=== PATIENT | female | born 1945 | race Two or more races ===

== ENCOUNTER 2018-01-05 17:25 | Emergency (ER) | payer OTHER ==
[~2018-01-05] VITALS: Ht 157.5 cm; Wt 56.2 kg
[2018-01-05 18:00] VITALS: BP 128/64
[2018-01-05 18:49] LABS: Urine Bacteria NONE SEEN /hpf (None Seen); Urine Blood Negative /uL (Negative); Urine Specific Gravity 1.004 (1.001-1.035); Urine WBC <1 /hpf (0 - 5)
[2018-01-05 18:50] LABS: Basophils # (auto) 0 uL; Basophils % (auto) 0.5 % (0.0-2.0); Eosinophils # (auto) 0.4 uL; Eosinophils % (auto) 6.1 % (0.0-7.0); Hematocrit 36.3 % (36.0-46.0); Hemoglobin 12.1 g/dL (12.2-16.2); Lymphocytes # (auto) 1.3 uL; Lymphocytes % (auto) 22.3 % (10.0-50.0); Mean Corpuscular Hemoglobin 29.6 pg (28.0-32.0); Mean Corpuscular Hgb Conc. 33.4 g/dL (32.0-36.0); Mean Corpuscular Volume 88.6 fL (80.0-100.0); Monocytes # (auto) 0.5 uL; Monocytes % (auto) 8.7 % (0.0-12.0); Neutrophils # (auto) 3.7 uL; Neutrophils % (auto) 62.4 % (37.0-80.0); Nucleated Red Blood Cells % 0.1 %; Platelet Count (auto) 277 10^3/uL (140-450); Red Cell Distribution Width 15.1 % (11.8-14.3)
[2018-01-05 19:07] LABS: Albumin 3.3 g/dL (3.4-5.0); Anion Gap 5 (5-15); Blood Urea Nitrogen 13 mg/dL (7-18); Calcium 8.1 mg/dL (8.5-10.1); Carbon Dioxide 29 mmol/L (21-32); Chloride 105 mmol/L (98-107); Glucose 92 mg/dL (74-106); Potassium 4.4 mmol/L (3.5-5.1); Sodium 139 mmol/L (136-145)
[2018-01-05 19:09] LABS: Alanine Aminotransferase 30 U/L (13-56); Aspartate Aminotransferase 21 U/L (15-37); BUN/Creatinine Ratio 17.3; GFR African American 97 mL/min; GFR Non-African American 80 mL/min
[2018-01-05 19:13] LABS: Alkaline Phosphatase 80 U/L (45-117); Bilirubin, Total 0.3 mg/dL (0.2-1.0); Total Protein 6.6 g/dL (6.4-8.2)
== END 2018-01-05 23:29 | disposition left against medical advice (07) ==
LOC: ER 17:25
DX: R06.02 Shortness of breath (principal); R53.1 Weakness; Z53.21 Procedure and treatment not carried out due to patient leaving prior to being seen by health care provider
CPT/HCPCS: 36415; 71045; 80053; 81001; 84484; 85025; 93005

== ENCOUNTER 2020-08-19 08:01 | Inpatient (IN) | payer OTHER ==
[~2020-08-19] VITALS: Ht 157.5 cm; Wt 57.2 kg
[2020-08-19 09:05] LABS: Basophils # (auto) 0.1 10 ^3/uL (0-0.2); Basophils % (auto) 0.8 % (0.0-2.0); Eosinophils # (auto) 0.3 10 ^3/uL (0-0.8); Eosinophils % (auto) 2.5 % (0.0-7.0); Hematocrit 35.2 % (36.0-46.0); Hemoglobin 11.8 g/dL (12.2-16.2); Lymphocytes # (auto) 1.2 10 ^3/uL (0.4-5.4); Lymphocytes % (auto) 11.7 % (10.0-50.0); Mean Corpuscular Hemoglobin 29.3 pg (28.0-32.0); Mean Corpuscular Hgb Conc. 33.4 g/dL (32.0-36.0); Mean Corpuscular Volume 87.5 fL (80.0-100.0); Monocytes # (auto) 0.3 10 ^3/uL (0-1.3); Monocytes % (auto) 3.4 % (0.0-12.0); Neutrophils # (auto) 8.4 10 ^3/uL (1.6-8.6); Neutrophils % (auto) 81.6 % (37.0-80.0); Nucleated Red Blood Cells % 0.1 %; Platelet Count (auto) 272 10^3/uL (140-450); Red Blood Cells 4.02 10^6/uL (4.0-5.20); Red Cell Distribution Width 16.1 % (11.8-14.3); White Blood Cell 10.3 10^3/uL (4.4-10.8)
[2020-08-19 09:15] LABS: Albumin 2.6 g/dL (3.4-5.0); Magnesium 1.8 mg/dL (1.6-2.6); Potassium 4.2 mmol/L (3.5-5.1)
[2020-08-19 09:16] LABS: Lactic Acid w/Reflex 2.2 mmol/L (0.4-2.0)
[2020-08-19 09:20] LABS: BUN/Creatinine Ratio 24.3; Bilirubin, Total 0.4 mg/dL (0.2-1.0); Total Protein 6.6 g/dL (6.4-8.2)
[2020-08-19] MEDS ORDERED: FUROSEMIDE 20 MG/2 ML VIAL IV ONE (12:15)
[2020-08-19 14:09] LABS: Urine Amorphous Crystal MANY /hpf (None Seen); Urine Bacteria NONE SEEN /hpf (None Seen); Urine Blood Negative /uL (Negative); Urine Mucus FEW (None Seen); Urine Specific Gravity 1.015 (1.001-1.035); Urine WBC 5 /hpf (0 - 5)
[2020-08-19] MEDS ORDERED: cefTRIAXone 1GM/50ML D5W 50 ML IV ONE (19:15)
[2020-08-19] MEDS ORDERED: traMADol HCL 50 MG TAB PO PRN (19:15)
[2020-08-19] MEDS ORDERED: NITROGLYCERIN 0.4 MG SL TAB SL PRN (19:15)
[2020-08-19] MEDS ORDERED: LACTULOSE 20Gm/30ML SOLN PO PRN (19:15)
[2020-08-19] MEDS ORDERED: ONDANSETRON HCL 4 MG/2 ML VIAL IV PRN (19:15)
[2020-08-19] MEDS ORDERED: MORPHINE SULF INJ 2 MG/ML SYRINGE 1ML IV PRN (19:15)
[2020-08-19 21:10] VITALS: BP 135/81
[2020-08-19 22:00] VITALS: BP 135/81
[2020-08-19] MEDS: SODIUM CHLOR 0.9% PF (SALINE LOCK) 10ML VIAL/SYR IV SCH (22:00)
[2020-08-19] MEDS: ATORVASTATIN 20 MG TAB PO SCH (23:45)
[2020-08-19] MEDS: CARVEDILOL 3.125 MG TAB PO SCH (23:46)
[2020-08-20 01:32] VITALS: BP 135/81
[2020-08-20 05:00] VITALS: BP 97/62
[2020-08-20] MEDS: SODIUM CHLOR 0.9% PF (SALINE LOCK) 10ML VIAL/SYR IV SCH ×3 (06:00→22:50)
[2020-08-20 06:40] LABS: Basophils # (auto) 0.1 10 ^3/uL (0-0.2); Basophils % (auto) 0.7 % (0.0-2.0); Eosinophils # (auto) 0.3 10 ^3/uL (0-0.8); Eosinophils % (auto) 2.6 % (0.0-7.0); Hematocrit 34.4 % (36.0-46.0); Hemoglobin 11.8 g/dL (12.2-16.2); Lymphocytes % (auto) 8.7 % (10.0-50.0); Mean Corpuscular Hemoglobin 29.8 pg (28.0-32.0); Mean Corpuscular Hgb Conc. 34.2 g/dL (32.0-36.0); Mean Corpuscular Volume 86.9 fL (80.0-100.0); Monocytes # (auto) 0.3 10 ^3/uL (0-1.3); Monocytes % (auto) 2.8 % (0.0-12.0); Neutrophils # (auto) 9.5 10 ^3/uL (1.6-8.6); Neutrophils % (auto) 85.2 % (37.0-80.0); Nucleated Red Blood Cells % 0.2 %; Platelet Count (auto) 284 10^3/uL (140-450); Red Blood Cells 3.96 10^6/uL (4.0-5.20); Red Cell Distribution Width 15.5 % (11.8-14.3); White Blood Cell 11.2 10^3/uL (4.4-10.8)
[2020-08-20 06:53] LABS: Albumin 2.4 g/dL (3.4-5.0); BUN/Creatinine Ratio 24.3; Bilirubin, Total 0.7 mg/dL (0.2-1.0); Total Protein 6.5 g/dL (6.4-8.2)
[2020-08-20 08:53] VITALS: BP 94/48
[2020-08-20] MEDS: ALBUTEROL SULF 2.5 MG/0.5ML(0.5%) NEB SOLN NEB PRN (08:59)
[2020-08-20] MEDS: ASPirin 81 mg TAB PO SCH (09:32)
[2020-08-20] MEDS: ENOXAPARIN SOD 40 MG/0.4 ML SYRINGE SC SCH (09:32)
[2020-08-20] MEDS: CARVEDILOL 3.125 MG TAB PO SCH (09:36)
[2020-08-20] MEDS: NITROGLYCERIN 0.2MG/HR TOPICAL PATCH TD SCH (09:37)
[2020-08-20] MEDS ORDERED: ENALAPRIL MALEATE 2.5 MG TAB PO SCH (10:00)
[2020-08-20] MEDS: FUROSEMIDE 40 MG/4 ML VIAL IV SCH (10:44)
[2020-08-20] MEDS: POTASSIUM CHL 20 Meq TABLET PO SCH (10:45)
[2020-08-20 12:38] VITALS: BP 95/51
[2020-08-20] MEDS ORDERED: AZITHROMYCIN 500MG/ 250ML 250 ML IV ONE (15:15)
[2020-08-20 16:41] VITALS: BP 97/47
[2020-08-20] MEDS ORDERED: METO-169 PO (17:54)
[2020-08-20] MEDS ORDERED: LEVO25TA6 PO (17:54)
[2020-08-20 22:00] VITALS: BP 100/52
[2020-08-20] MEDS: guaiFENesin 200 MG/10 ML UD PO PRN (22:48)
[2020-08-20] MEDS: ATORVASTATIN 20 MG TAB PO SCH (22:49)
[2020-08-20] MEDS: cefTRIAXone 1GM/50ML D5W 50 ML IV SCH (22:50)
[2020-08-21] MEDS: guaiFENesin 200 MG/10 ML UD PO PRN (02:33)
[2020-08-21 05:00] VITALS: BP 103/56
[2020-08-21] MEDS: SODIUM CHLOR 0.9% PF (SALINE LOCK) 10ML VIAL/SYR IV SCH ×3 (05:26→22:21)
[2020-08-21 06:53] LABS: Basophils # (auto) 0 10 ^3/uL (0-0.2); Basophils % (auto) 0.3 % (0.0-2.0); Eosinophils # (auto) 0.3 10 ^3/uL (0-0.8); Eosinophils % (auto) 2.5 % (0.0-7.0); Hematocrit 32.9 % (36.0-46.0); Hemoglobin 11.4 g/dL (12.2-16.2); Lymphocytes # (auto) 0.8 10 ^3/uL (0.4-5.4); Lymphocytes % (auto) 8.3 % (10.0-50.0); Mean Corpuscular Hemoglobin 29.9 pg (28.0-32.0); Mean Corpuscular Hgb Conc. 34.5 g/dL (32.0-36.0); Mean Corpuscular Volume 86.5 fL (80.0-100.0); Monocytes # (auto) 0.3 10 ^3/uL (0-1.3); Monocytes % (auto) 2.7 % (0.0-12.0); Neutrophils # (auto) 8.8 10 ^3/uL (1.6-8.6); Neutrophils % (auto) 86.2 % (37.0-80.0); Platelet Count (auto) 278 10^3/uL (140-450); Red Blood Cells 3.81 10^6/uL (4.0-5.20); White Blood Cell 10.2 10^3/uL (4.4-10.8)
[2020-08-21 07:18] LABS: Chloride 98 mmol/L (98-107); Potassium 4.1 mmol/L (3.5-5.1); Sodium 134 mmol/L (136-145)
[2020-08-21 07:35] LABS: Anion Gap 7 (5-15); BUN/Creatinine Ratio 35.5; Blood Urea Nitrogen 22 mg/dL (7-18); Calcium 8.9 mg/dL (8.5-10.1); Carbon Dioxide 29 mmol/L (21-32); Cholesterol 189 mg/dL (< 200); GFR African American 120 mL/min; GFR Non-African American 99 mL/min; Glucose 122 mg/dL (74-106); HDL Cholesterol 43 mg/dL (40-59); LDL Cholesterol 119 mg/dL (< 100); Magnesium 2.4 mg/dL (1.6-2.6); Triglycerides 119 mg/dL (< 150)
[2020-08-21 09:00] VITALS: BP 110/53
[2020-08-21] MEDS: POTASSIUM CHL 20 Meq TABLET PO SCH (09:26)
[2020-08-21] MEDS: ASPirin 81 mg TAB PO SCH (09:27)
[2020-08-21] MEDS: FUROSEMIDE 40 MG/4 ML VIAL IV SCH (09:28)
[2020-08-21] MEDS: ENOXAPARIN SOD 40 MG/0.4 ML SYRINGE SC SCH (09:30)
[2020-08-21] MEDS: NITROGLYCERIN 0.2MG/HR TOPICAL PATCH TD SCH (09:31)
[2020-08-21] MEDS: AZITHROMYCIN 500MG/ 250ML 250 ML IV SCH (09:32)
[2020-08-21 13:00] VITALS: BP 106/69
[2020-08-21] MEDS ORDERED: THROAT LOZENGES(CEPASTAT) MT PRN (13:15)
[2020-08-21] MEDS: ALPRAZolam 0.25 MG TAB PO PRN (13:40)
[2020-08-21 17:00] VITALS: BP 91/56
[2020-08-21 22:00] VITALS: BP 99/54
[2020-08-21] MEDS: cefTRIAXone 1GM/50ML D5W 50 ML IV SCH (22:21)
[2020-08-21] MEDS: ATORVASTATIN 20 MG TAB PO SCH (22:22)
[2020-08-22] MEDS: guaiFENesin 200 MG/10 ML UD PO PRN ×2 (01:31→22:28)
[2020-08-22 05:00] VITALS: BP 113/60
[2020-08-22] MEDS: SODIUM CHLOR 0.9% PF (SALINE LOCK) 10ML VIAL/SYR IV SCH ×3 (05:35→22:57)
[2020-08-22 08:00] VITALS: BP 108/68
[2020-08-22 08:07] LABS: BUN/Creatinine Ratio 59.6; Calcium 9.3 mg/dL (8.5-10.1); Potassium 4.3 mmol/L (3.5-5.1)
[2020-08-22] MEDS: POTASSIUM CHL 20 Meq TABLET PO SCH (09:35)
[2020-08-22] MEDS: AZITHROMYCIN 500MG/ 250ML 250 ML IV SCH (09:35)
[2020-08-22] MEDS: ASPirin 81 mg TAB PO SCH (09:35)
[2020-08-22] MEDS: ENOXAPARIN SOD 40 MG/0.4 ML SYRINGE SC SCH (09:36)
[2020-08-22] MEDS: FUROSEMIDE 40 MG/4 ML VIAL IV SCH (09:36)
[2020-08-22] MEDS: ACETAMINOPHEN 500 MG TAB PO PRN ×2 (11:42→22:35)
[2020-08-22 12:00] VITALS: BP 108/68
[2020-08-22 16:00] VITALS: BP 123/68
[2020-08-22 20:56] VITALS: BP 123/68
[2020-08-22 22:00] VITALS: BP 100/63
[2020-08-22] MEDS: cefTRIAXone 1GM/50ML D5W 50 ML IV SCH (22:27)
[2020-08-22] MEDS: ALPRAZolam 0.25 MG TAB PO PRN (22:36)
[2020-08-22] MEDS: ATORVASTATIN 20 MG TAB PO SCH (22:57)
[2020-08-23 05:00] VITALS: BP 94/56
[2020-08-23] MEDS: SODIUM CHLOR 0.9% PF (SALINE LOCK) 10ML VIAL/SYR IV SCH ×3 (05:59→22:45)
[2020-08-23] MEDS: ALBUTEROL SULF 2.5 MG/0.5ML(0.5%) NEB SOLN NEB PRN (06:00)
[2020-08-23 08:00] VITALS: BP 118/61
[2020-08-23] MEDS: POTASSIUM CHL 20 Meq TABLET PO SCH (09:10)
[2020-08-23] MEDS: ENOXAPARIN SOD 40 MG/0.4 ML SYRINGE SC SCH (09:10)
[2020-08-23] MEDS: ASPirin 81 mg TAB PO SCH (09:10)
[2020-08-23] MEDS: AZITHROMYCIN 500MG/ 250ML 250 ML IV SCH (09:10)
[2020-08-23 11:59] VITALS: BP 117/94
[2020-08-23 16:00] VITALS: BP 103/52
[2020-08-23] MEDS: ATORVASTATIN 20 MG TAB PO SCH (21:27)
[2020-08-23 22:00] VITALS: BP 125/69
[2020-08-23] MEDS: cefTRIAXone 1GM/50ML D5W 50 ML IV SCH (22:45)
[2020-08-24 04:44] VITALS: BP 123/71
[2020-08-24] MEDS: SODIUM CHLOR 0.9% PF (SALINE LOCK) 10ML VIAL/SYR IV SCH ×3 (05:44→22:00)
[2020-08-24 09:00] VITALS: BP_SYST 125; BP_SYST 132; BP_DIAS 60; BP_DIAS 69
[2020-08-24] MEDS: POTASSIUM CHL 20 Meq TABLET PO SCH (09:32)
[2020-08-24] MEDS: AZITHROMYCIN 500MG/ 250ML 250 ML IV SCH (09:33)
[2020-08-24] MEDS: ENOXAPARIN SOD 40 MG/0.4 ML SYRINGE SC SCH (09:33)
[2020-08-24] MEDS: ASPirin 81 mg TAB PO SCH (09:33)
[2020-08-24 13:01] VITALS: BP 111/71
[2020-08-24 17:00] VITALS: BP 107/63
[2020-08-24] MEDS: cefTRIAXone 1GM/50ML D5W 50 ML IV SCH (22:00)
[2020-08-24] MEDS: ATORVASTATIN 20 MG TAB PO SCH (22:00)
[2020-08-24 22:12] VITALS: BP 102/53
[2020-08-25 05:04] VITALS: BP 112/73
[2020-08-25] MEDS: SODIUM CHLOR 0.9% PF (SALINE LOCK) 10ML VIAL/SYR IV SCH ×3 (05:57→23:09)
[2020-08-25 09:00] VITALS: BP 117/62
[2020-08-25] MEDS: AZITHROMYCIN 500MG/ 250ML 250 ML IV SCH (10:37)
[2020-08-25] MEDS: ASPirin 81 mg TAB PO SCH (10:37)
[2020-08-25] MEDS: ENOXAPARIN SOD 40 MG/0.4 ML SYRINGE SC SCH (10:38)
[2020-08-25] MEDS: POTASSIUM CHL 20 Meq TABLET PO SCH (10:38)
[2020-08-25 13:00] VITALS: BP 105/73
[2020-08-25] MEDS: guaiFENesin 200 MG/10 ML UD PO PRN (15:14)
[2020-08-25 17:00] VITALS: BP 115/61
[2020-08-25 20:36] VITALS: BP 115/61
[2020-08-25 22:00] VITALS: BP 119/68
[2020-08-25] MEDS: cefTRIAXone 1GM/50ML D5W 50 ML IV SCH (23:09)
[2020-08-25] MEDS: ATORVASTATIN 20 MG TAB PO SCH (23:10)
[2020-08-26 05:00] VITALS: BP 120/64
[2020-08-26] MEDS: SODIUM CHLOR 0.9% PF (SALINE LOCK) 10ML VIAL/SYR IV SCH ×3 (05:43→22:41)
[2020-08-26 06:07] LABS: Mean Corpuscular Hemoglobin 29.9 pg (28.0-32.0); Mean Corpuscular Hgb Conc. 34.5 g/dL (32.0-36.0); Mean Corpuscular Volume 86.8 fL (80.0-100.0); Platelet Count (auto) 409 10^3/uL (140-450); Red Blood Cells 3.34 10^6/uL (4.0-5.20); White Blood Cell 9.6 10^3/uL (4.4-10.8)
[2020-08-26 06:25] LABS: Basophils % (manual) 0 (0.0-2.0); Blast Cells 0; Promyelocytes % 0; Reactive Lymphocytes 0
[2020-08-26 06:26] LABS: Potassium 4.3 mmol/L (3.5-5.1)
[2020-08-26 06:33] LABS: BUN/Creatinine Ratio 30.2; Calcium 9.2 mg/dL (8.5-10.1)
[2020-08-26 07:06] LABS: Band Neutrophils % (manual) 2; Eosinophils % (manual) 2 (0-7); Lymphocytes % (manual) 17 (10.0-50.0); Metamyelocytes % 1; Monocytes % (manual) 1 (0-12); Myelocytes % 3
[2020-08-26 09:00] VITALS: BP 104/50
[2020-08-26] MEDS: AZITHROMYCIN 500MG/ 250ML 250 ML IV SCH (10:54)
[2020-08-26] MEDS: ASPirin 81 mg TAB PO SCH (10:55)
[2020-08-26] MEDS: ENOXAPARIN SOD 40 MG/0.4 ML SYRINGE SC SCH (10:55)
[2020-08-26] MEDS: POTASSIUM CHL 20 Meq TABLET PO SCH (10:56)
[2020-08-26 13:00] VITALS: BP 114/62
[2020-08-26 17:00] VITALS: BP 103/54
[2020-08-26 22:00] VITALS: BP 122/64
[2020-08-26] MEDS: ATORVASTATIN 20 MG TAB PO SCH (22:41)
[2020-08-26] MEDS: cefTRIAXone 1GM/50ML D5W 50 ML IV SCH (22:41)
[2020-08-26] MEDS: ALPRAZolam 0.25 MG TAB PO PRN (22:43)
[2020-08-27 05:00] VITALS: BP 115/61
[2020-08-27] MEDS: SODIUM CHLOR 0.9% PF (SALINE LOCK) 10ML VIAL/SYR IV SCH ×3 (05:34→21:28)
[2020-08-27 09:00] VITALS: BP 114/60
[2020-08-27] MEDS: ASPirin 81 mg TAB PO SCH (11:24)
[2020-08-27] MEDS: AZITHROMYCIN 500MG/ 250ML 250 ML IV SCH (11:24)
[2020-08-27] MEDS: ENOXAPARIN SOD 40 MG/0.4 ML SYRINGE SC SCH (11:25)
[2020-08-27] MEDS: POTASSIUM CHL 20 Meq TABLET PO SCH (11:25)
[2020-08-27 13:00] VITALS: BP 128/69
[2020-08-27 17:00] VITALS: BP 122/70
[2020-08-27] MEDS: cefTRIAXone 1GM/50ML D5W 50 ML IV SCH (21:28)
[2020-08-27] MEDS: ATORVASTATIN 20 MG TAB PO SCH (21:29)
[2020-08-27 21:33] VITALS: BP 104/58
[2020-08-28] MEDS: SODIUM CHLOR 0.9% PF (SALINE LOCK) 10ML VIAL/SYR IV SCH ×2 (04:18→15:06)
[2020-08-28 05:00] VITALS: BP 110/59
[2020-08-28 09:00] VITALS: BP 118/70
[2020-08-28] MEDS: ASPirin 81 mg TAB PO SCH (10:57)
[2020-08-28] MEDS: AZITHROMYCIN 500MG/ 250ML 250 ML IV SCH (10:57)
[2020-08-28] MEDS: ENOXAPARIN SOD 40 MG/0.4 ML SYRINGE SC SCH (10:58)
[2020-08-28] MEDS: POTASSIUM CHL 20 Meq TABLET PO SCH (10:58)
[2020-08-28 13:00] VITALS: BP 116/66
[2020-08-28 17:00] VITALS: BP 124/73
== END 2020-08-28 18:15 | disposition home or self-care (01) | DRG 193 ==
LOC: EDBD 08:01 → ER 08:01 → TELE 19:04 → TELE-CENTR 20:42
PROVIDERS: ADMIT Internal Medicine; ATTEND Internal Medicine Geriatric Medicine
DX: J18.9 Pneumonia, unspecified organism (principal); J96.01 Acute respiratory failure with hypoxia; N30.00 Acute cystitis without hematuria; E44.0 Moderate protein-calorie malnutrition; J44.0 Chronic obstructive pulmonary disease with (acute) lower respiratory infection; E03.9 Hypothyroidism, unspecified; I10 Essential (primary) hypertension; D63.8 Anemia in other chronic diseases classified elsewhere; I73.9 Peripheral vascular disease, unspecified; E78.00 Pure hypercholesterolemia, unspecified; Z20.822 Contact with and (suspected) exposure to COVID-19; E78.5 Hyperlipidemia, unspecified; F41.9 Anxiety disorder, unspecified; Z82.49 Family history of ischemic heart disease and other diseases of the circulatory system; Z88.5 Allergy status to narcotic agent
CPT/HCPCS: 36415; 71045; 71046; 80048; 80053; 80061; 81001; 82550; 83605; 83735; 83880; 84443; 84484; 85007; 85025; 85027; 85379; 87040; 87086; 87426; 87804; 93005; 93306; 93925; 93970; 94640; 96365; 96375; G0378; J0696

== ENCOUNTER 2023-12-06 23:56 | Inpatient (IN) | payer OTHER ==
[~2023-12-06] VITALS: Ht 162.6 cm; Wt 54.2 kg
[~2023-12-06 23:56] MED LIST: LEVO25TA6 PO; METO-289 PO
[2023-12-07] VITALS (73 sets, daily range): BP systolic 94–141; BP diastolic 59–93; PULSE 62–91; RESP 11–40; TEMP 97.6–98.2; O2SAT 93–100
[2023-12-07] MEDS: MIDAZOLAM HCL 2MG/2ML 2ml VIAL (1mg/ml) ONE (00:20)
[2023-12-07] MEDS: fentaNYL CITRATE 100 MCG/2 ML VL ONE (00:20)
[2023-12-07] MEDS: HEPARIN SODIUM (PORCINE) 5000 UNITS/ML 1ML VIAL ONE ×2 (00:20→00:51)
[2023-12-07] MEDS: ANGIOMAX 250 MG VIAL IV ONE (00:20)
[2023-12-07] MEDS: VERAPAMIL 2.5MG/ML INJ 2ML VIAL IV ONE (00:20)
[2023-12-07] MEDS: LIDOCAINE 2%HCL (LOCAL ANESTH.) INJ 20ML MDV ONE (00:21)
[2023-12-07] MEDS: IODIXANOL 320MG/ML 100ML BTL IV ONE ×2 (00:21→01:38)
[2023-12-07] MEDS: SODIUM CHL 0.9% 50 ML ONE (00:21)
[2023-12-07 00:25] LABS: Basophils # (auto) 0 10 ^3/uL (0-0.2); Basophils % (auto) 0.3 % (0.0-2.0); Eosinophils # (auto) 0 10 ^3/uL (0-0.8); Eosinophils % (auto) 0.2 % (0.0-7.0); Hematocrit 48.5 % (36.0-46.0); Hemoglobin 15.4 g/dL (12.2-16.2); Lymphocytes # (auto) 0.4 10 ^3/uL (0.4-5.4); Lymphocytes % (auto) 2.8 % (10.0-50.0); Mean Corpuscular Hemoglobin 30.2 pg (28.0-32.0); Mean Corpuscular Hgb Conc. 31.7 g/dL (32.0-36.0); Mean Corpuscular Volume 95.2 fL (80.0-100.0); Monocytes # (auto) 0.6 10 ^3/uL (0-1.3); Neutrophils # (auto) 13.8 10 ^3/uL (1.6-8.6); Neutrophils % (auto) 92.7 % (37.0-80.0); Nucleated Red Blood Cells % 0.1 %; Red Blood Cells 5.09 10^6/uL (4.0-5.20); Red Cell Distribution Width 16.8 % (11.8-14.3); White Blood Cell 14.9 10^3/uL (4.4-10.8)
[2023-12-07 00:39] LABS: INR 1.13 (0.9-1.15); Partial Thromboplastin Time 23.7 SEC (24.5-34.5); Prothrombin Time 11.9 sec (9.3-11.8)
[2023-12-07] MEDS: NITROGLYCERIN 2% OINT 1GM PKG TD ONE (00:42)
[2023-12-07] MEDS: methylPREDNISolone SOD SUCC 125 MG/2 ML VL IV ONE (00:42)
[2023-12-07 00:43] LABS: Alanine Aminotransferase 530 U/L (7-40); Albumin 3.8 g/dL (3.2-4.8); Alkaline Phosphatase 139 U/L (46-116); Anion Gap 10 (5-15); Aspartate Aminotransferase 918 U/L (13-40); BUN/Creatinine Ratio 20.2 (10.0-20.0); Blood Urea Nitrogen 20 mg/dL (9-23); Carbon Dioxide 20 mmol/L (20-30); Chloride 107 mmol/L (98-107); Glucose 301 mg/dL (74-106); Potassium 4.8 mmol/L (3.5-5.1); Sodium 137 mmol/L (136-145)
[2023-12-07 00:44] LABS: Bilirubin, Total 1.2 mg/dL (0.2-1.0); Total Protein 5.5 g/dL (5.7-8.2)
[2023-12-07] MEDS: IPRATROPIUM BROM 0.5 MG/2.5ML INH SOL NEB ONE (00:50)
[2023-12-07] MEDS: ALBUTEROL SULF 2.5 MG/0.5ML(0.5%) NEB SOLN NEB ONE (00:50)
[2023-12-07] MEDS: CLOPIDOGREL BISULFATE 75 MG TAB ONE (00:51)
[2023-12-07] MEDS: MORPHINE SULFATE INJ 2 MG/ml SYRG ONE (00:51)
[2023-12-07] MEDS: ATROPINE SULF 1 MG/10ml SYR ONE (01:31)
[2023-12-07] MEDS: EPINEPHrine HCL 1 MG/10 ML SYRG ONE (01:31)
[2023-12-07] MEDS ORDERED: MORPHINE SULFATE INJ 2 MG/ml SYRG IV PRN (02:30)
[2023-12-07] MEDS ORDERED: NITROGLYCERIN 0.4 MG SL TAB SL PRN (02:30)
[2023-12-07] MEDS: SODIUM CHLORIDE 0.9% 1,000 ML IV ONE (04:00)
[2023-12-07] MEDS: CLOPIDOGREL BISULFATE 75 MG TAB PO SCH (09:54)
[2023-12-07] MEDS: ASPirin 81 mg TAB PO SCH (09:54)
[2023-12-07] MEDS: METOPROLOL TARTRATE 25 MG TAB PO SCH (09:55)
[2023-12-07 15:16] LABS: Hematocrit 47.3 % (36.0-46.0); Hemoglobin 15.2 g/dL (12.2-16.2); Mean Corpuscular Hemoglobin 29.9 pg (28.0-32.0); Mean Corpuscular Hgb Conc. 32.1 g/dL (32.0-36.0); Mean Corpuscular Volume 93.2 fL (80.0-100.0); Red Blood Cells 5.07 10^6/uL (4.0-5.20); White Blood Cell 10.9 10^3/uL (4.4-10.8)
[2023-12-07 15:26] LABS: Basophils % (manual) 0 (0.0-2.0); Blast Cells 0; Eosinophils % (manual) 0 (0-7); Metamyelocytes % 0; Myelocytes % 0; Promyelocytes % 0; Reactive Lymphocytes 0
[2023-12-07 15:34] LABS: Alanine Aminotransferase 418 U/L (7-40); Albumin 3.6 g/dL (3.2-4.8); Alkaline Phosphatase 109 U/L (46-116); Anion Gap 6 (5-15); Aspartate Aminotransferase 629 U/L (13-40); BUN/Creatinine Ratio 20.2 (10.0-20.0); Bilirubin, Total 0.6 mg/dL (0.2-1.0); Blood Urea Nitrogen 17 mg/dL (9-23); Calcium 8.8 mg/dL (8.7-10.4); Carbon Dioxide 23 mmol/L (20-30); Chloride 108 mmol/L (98-107); Glucose 172 mg/dL (74-106); Potassium 5.1 mmol/L (3.5-5.1); Sodium 137 mmol/L (136-145); Total Protein 5.6 g/dL (5.7-8.2)
[2023-12-07] MEDS ORDERED: MONT-8 PO (16:13)
[2023-12-07] MEDS ORDERED: BENZ100C97 PO (16:16)
[2023-12-07] MEDS ORDERED: LEVO25TA6 PO (16:17)
[2023-12-07] MEDS ORDERED: ALBU108A5 IN (16:21)
[2023-12-07 16:24] LABS: Band Neutrophils % (manual) 2; Lymphocytes % (manual) 5 (10.0-50.0); Monocytes % (manual) 1 (0-12)
[2023-12-07] MEDS ORDERED: [UNRECOGNIZED DRUG - CODE] PO (16:24)
[2023-12-07 16:25] LABS: Anisocytosis Slight; Giant Platelets Few; Macrocytosis Slight; Platelet Estimate Adequate
[2023-12-07] MEDS: SACUBITRIL-VALSARTAN 24mg/26mg TAB PO SCH (21:49)
[2023-12-08] VITALS (8 sets, daily range): BP systolic 105–118; BP diastolic 57–74; PULSE 61–75; RESP 16–20; TEMP 97.8–98.6; O2SAT 96–100
[2023-12-08 06:08] LABS: Basophils # (auto) 0 10 ^3/uL (0-0.2); Basophils % (auto) 0.1 % (0.0-2.0); Eosinophils # (auto) 0 10 ^3/uL (0-0.8); Eosinophils % (auto) 0.2 % (0.0-7.0); Hematocrit 46.2 % (36.0-46.0); Hemoglobin 14.9 g/dL (12.2-16.2); Lymphocytes % (auto) 7.2 % (10.0-50.0); Mean Corpuscular Hemoglobin 30.1 pg (28.0-32.0); Mean Corpuscular Hgb Conc. 32.2 g/dL (32.0-36.0); Mean Corpuscular Volume 93.3 fL (80.0-100.0); Monocytes # (auto) 1.1 10 ^3/uL (0-1.3); Monocytes % (auto) 7.5 % (0.0-12.0); Nucleated Red Blood Cells % 0.1 %; Red Blood Cells 4.95 10^6/uL (4.0-5.20); Red Cell Distribution Width 15.8 % (11.8-14.3); White Blood Cell 14.1 10^3/uL (4.4-10.8)
[2023-12-08 06:31] LABS: Alanine Aminotransferase 328 U/L (7-40); Albumin 3.4 g/dL (3.2-4.8); Alkaline Phosphatase 103 U/L (46-116); Anion Gap 7 (5-15); Aspartate Aminotransferase 378 U/L (13-40); BUN/Creatinine Ratio 23.4 (10.0-20.0); Bilirubin, Total 0.4 mg/dL (0.2-1.0); Blood Urea Nitrogen 18 mg/dL (9-23); Calcium 8.7 mg/dL (8.5-10.1); Carbon Dioxide 22 mmol/L (20-30); Chloride 108 mmol/L (98-107); Glucose 163 mg/dL (74-106); Sodium 137 mmol/L (136-145); Total Protein 5.1 g/dL (5.7-8.2)
[2023-12-08] MEDS: EMPAGLIFLOZIN 10 MG TAB PO SCH (08:39)
[2023-12-08 10:59] LABS: Hepatitis B Core Total AB Negative (Negative)
[2023-12-08 13:36] LABS: Hepatitis A Total Antibody Positive (Negative); Hepatitis B Surface Antibody Positive (Negative)
[2023-12-08 13:37] LABS: Hepatitis B Surface Antigen Negative (Negative); Hepatitis C Antibody Negative (Negative)
[2023-12-08] MEDS: FUROSEMIDE 20 MG/2 ML VIAL IV ONE (16:01)
[2023-12-08] MEDS: ENOXAPARIN SOD 30 MG/0.3 ML SYRINGE SC ONE (16:05)
[2023-12-08] MEDS: FUROSEMIDE 20 MG/2 ML VIAL IV SCH (16:42)
[2023-12-08 18:48] LABS: Triglycerides 170 mg/dL (< 150)
[2023-12-08 18:49] LABS: LDL Cholesterol 60 mg/dL (< 100)
[2023-12-08 18:50] LABS: Cholesterol 110 mg/dL (< 200); HDL Cholesterol 30 mg/dL (40-59)
[2023-12-08] MEDS: TAMSULOSIN HYDROCHLORIDE 0.4 MG CAP PO SCH (21:57)
[2023-12-09] VITALS (9 sets, daily range): BP systolic 97–114; BP diastolic 53–65; PULSE 62–85; RESP 14–20; TEMP 97–98.6; O2SAT 91–100
[2023-12-09] MEDS: ENOXAPARIN SOD 30 MG/0.3 ML SYRINGE SC SCH (09:20)
[2023-12-09] MEDS: cefTRIAXone 1GM/50ML D5W 50 ML IV ONE (09:45)
[2023-12-09 10:49] LABS: Basophils # (auto) 0.2 10 ^3/uL (0-0.2); Basophils % (auto) 1.1 % (0.0-2.0); Eosinophils # (auto) 0.3 10 ^3/uL (0-0.8); Eosinophils % (auto) 2.4 % (0.0-7.0); Hemoglobin 15.9 g/dL (12.2-16.2); Lymphocytes # (auto) 0.9 10 ^3/uL (0.4-5.4); Lymphocytes % (auto) 6.7 % (10.0-50.0); Mean Corpuscular Hemoglobin 30.2 pg (28.0-32.0); Mean Corpuscular Hgb Conc. 32.4 g/dL (32.0-36.0); Mean Corpuscular Volume 93.1 fL (80.0-100.0); Monocytes % (auto) 7.6 % (0.0-12.0); Neutrophils # (auto) 11.3 10 ^3/uL (1.6-8.6); Neutrophils % (auto) 82.2 % (37.0-80.0); Nucleated Red Blood Cells % 0.1 %; Red Blood Cells 5.26 10^6/uL (4.0-5.20); Red Cell Distribution Width 15.4 % (11.8-14.3); White Blood Cell 13.8 10^3/uL (4.4-10.8)
[2023-12-09 11:05] LABS: Alanine Aminotransferase 202 U/L (7-40); Albumin 3.3 g/dL (3.2-4.8); Alkaline Phosphatase 101 U/L (46-116); Anion Gap 4 (5-15); Aspartate Aminotransferase 140 U/L (13-40); Blood Urea Nitrogen 13 mg/dL (9-23); Calcium 8.9 mg/dL (8.5-10.1); Carbon Dioxide 33 mmol/L (20-30); Chloride 102 mmol/L (98-107); Glucose 94 mg/dL (74-106); Potassium 4.1 mmol/L (3.5-5.1); Sodium 139 mmol/L (136-145)
[2023-12-09 11:06] LABS: Bilirubin, Total 0.7 mg/dL (0.2-1.0)
[2023-12-09] MEDS ORDERED: SACU1TAB PO (11:11)
[2023-12-09] MEDS ORDERED: FURO1TAB33 PO (11:11)
[2023-12-09] MEDS ORDERED: MET25T PO (11:11)
[2023-12-09] MEDS ORDERED: ASPI-325 PO (11:11)
[2023-12-09] MEDS ORDERED: CLOP75TA70 PO (11:11)
[2023-12-09] MEDS ORDERED: EMPA1TAB PO (11:11)
[2023-12-09 14:14] LABS: Urine Bacteria None Seen /hpf (None Seen)
[2023-12-09 15:23] LABS: Urine Blood Negative /uL (Negative); Urine Clarity Clear (Clear); Urine Color Light-Yellow (Yellow); Urine Mucus FEW (None Seen); Urine Protein, UAD Negative (Negative); Urine Specific Gravity 1.008 (1.001-1.035); Urine Urobilinogen Normal (Negative); Urine WBC 15 /hpf (0 - 5); Urine pH 5.5 (5.0-9.0)
[2023-12-09] MEDS: FUROSEMIDE 20 MG TAB PO SCH (18:00)
[2023-12-10 01:00] VITALS: BP 104/63; PULSE 85; RESP 18; TEMP 98.3; O2SAT 95
[2023-12-10 05:00] VITALS: BP 113/62; PULSE 81; RESP 18; TEMP 98.4; O2SAT 96
[2023-12-10 08:00] VITALS: PULSE 82; RESP 19; O2SAT 98
[2023-12-10 09:00] VITALS: BP 107/71; PULSE 93; RESP 16; TEMP 98.2; O2SAT 98
[2023-12-10] MEDS: cefTRIAXone 1GM/50ML D5W 50 ML IV SCH (09:57)
[2023-12-10 12:41] VITALS: BP 107/71; PULSE 93; RESP 18; TEMP 36.8; O2SAT 98
[2023-12-10 12:59] VITALS: BP 108/70; PULSE 99; RESP 16; TEMP 98.1; O2SAT 98
== END 2023-12-10 14:45 | disposition home health service (06) | DRG 321 ==
LOC: EDUNIT# 23:56 → ER 23:56 → TELE 12-07 02:27 → ICU WEST 12-07 03:57 → TELE-WESTW 12-07 17:10
PROVIDERS: ADMIT Student in an Organized Health Care Education/Training Program; ATTEND Student in an Organized Health Care Education/Training Program
PROC: 027035Z Dilation of Coronary Artery, One Artery with Two Drug-eluting Intraluminal Devices, Percutaneous Approach (ICD-10-PCS; principal; 2023-12-07)
PROC: 4A023N7 Measurement of Cardiac Sampling and Pressure, Left Heart, Percutaneous Approach (ICD-10-PCS; 2023-12-07)
PROC: B211YZZ Fluoroscopy of Multiple Coronary Arteries using Other Contrast (ICD-10-PCS; 2023-12-07)
PROC: B41FYZZ Fluoroscopy of Right Lower Extremity Arteries using Other Contrast (ICD-10-PCS; 2023-12-07)
DX: I21.19 ST elevation (STEMI) myocardial infarction involving other coronary artery of inferior wall (principal); I50.23 Acute on chronic systolic (congestive) heart failure; J44.1 Chronic obstructive pulmonary disease with (acute) exacerbation; I25.10 Atherosclerotic heart disease of native coronary artery without angina pectoris; E78.5 Hyperlipidemia, unspecified; I11.0 Hypertensive heart disease with heart failure; J45.909 Unspecified asthma, uncomplicated; I21.29 ST elevation (STEMI) myocardial infarction involving other sites; E03.9 Hypothyroidism, unspecified; R33.9 Retention of urine, unspecified; E87.5 Hyperkalemia; K82.8 Other specified diseases of gallbladder; R73.03 Prediabetes; Z79.02 Long term (current) use of antithrombotics/antiplatelets; Z82.49 Family history of ischemic heart disease and other diseases of the circulatory system; Z87.01 Personal history of pneumonia (recurrent); Z98.82 Breast implant status; Z87.891 Personal history of nicotine dependence
CPT/HCPCS: 36415; 71045; 75710; 76705; 80053; 80061; 81001; 83036; 83735; 83880; 84443; 84484; 85007; 85025; 85027; 85610; 85730; 86703; 86704; 86706; 86708; 86803; 87081; 87086; 87340; 92941; 93005; 93306; 93458; 96374; 97163; 99152; G0378; J2250; Q9967